=== PATIENT | male | born 1970 | race Caucasian/White ===

== ENCOUNTER 2020-09-10 14:52 | Outpatient (CLI) | payer BC | END 2020-09-10 14:53 | disposition home or self-care (01) | LOC: CSHULT 14:52 | PROVIDERS: ATTEND Internal Medicine | DX: M79.661 Pain in right lower leg (principal) ==

== ENCOUNTER 2021-04-11 20:52 | Emergency (ER) | payer BC ==
[2021-04-11 22:39] LABS: SARS-CoV-2 NAA Rapid Test Not Detected (NotDetected)
== END 2021-04-11 22:23 | disposition home or self-care (01) ==
LOC: CSHERS 20:52
DX: J18.9 Pneumonia, unspecified organism (principal); Z20.822 Contact with and (suspected) exposure to COVID-19
CPT/HCPCS: 0240U; 71045